=== PATIENT | female | born 1935 | race Caucasian/White ===

== ENCOUNTER 2016-08-04 01:37 | Observation (INO) | payer MEDICARE, BC ==
[2016-08-04] VITALS (7 sets, daily range): BP systolic 126–178; BP diastolic 64–93; PULSE 60–83; RESP 16–20; TEMP 97.4–98; O2SAT 96–98
[~2016-08-04] VITALS: Ht 167.6 cm; Wt 56.0 kg
[~2016-08-04 01:37] MED LIST: 1-ME1LIQ PO; BIOT5000 PO; BRIM0.155 EACH EYE; CALC100T2 PO; IRBE300T46 PO; LEVO112T2 PO; LUTE20CA PO; TRAV0.00 EACH EYE; VITA400T14 PO; VITA500T83 PO
--- NOTE | 2016-08-04 01:58 | PD ---
HPI Chief Complaint: Pain: Acute or Chronic Time Seen by Provider: 01:51 Travel History International Travel<30 days: No Contact w/Intl Traveler<30days: No Traveled to known affect area: No History of Present Illness HPI 81-year-old female with severe aortic stenosis, spinal stenosis status post surgical repair in 2012, scheduled for aortic valve replacement the first week in August, here for evaluation of left mid/upper back pain. Pain started at around 3 PM yesterday while at rest, described as an ache, constant, intermittently worse at times, no modifying factors. No dyspnea. No hemoptysis. No history of DVT or PE. She denies history of coronary artery disease. No trauma. No paresthesias or motor deficits. No fevers, chills, cough, or recent illness. PFSH Past Medical History Arthritis: Yes Autoimmune Disease: No Blood Disorders: No Cancer: Yes (thyroid) Cardiovascular Problems: Yes High Cholesterol: Yes Chemotherapy: No Diabetes: No Endocrine: Yes Gastrointestinal Disorders: Yes GERD: Yes Genitourinary: No Hypertension: Yes Musculoskeletal: Yes Neurologic: No Psychiatric: No Respiratory: No Radiation Therapy: No Thyroid Disease: Yes (cancer) Ulcer: Yes Menopausal: Yes Past Surgical History Abdominal Surgery: Yes (COLON RESECTION) Appendectomy: Yes Cardiac Surgery: No Endocrine Surgery: Yes (THYROID) Genitourinary Surgery: Yes Gynecologic Surgery: Yes Hysterectomy: Yes Thoracic Surgery: Yes (VERTIBRAE FUSION) Tonsillectomy: Yes Other Surgery: Yes (THYROIDECTOMY, BREAST BIOPSY, ) Social History Alcohol Use: Yes (occasional wine) Tobacco Use: No Substance Use: No Allergies-Medications (Allergen,Severity, Reaction): Coded Allergies: No Known Allergies (Verified , 08/04/16) Reported Meds & Prescriptions Reported Meds & Active Scripts Active Reported Calcium Lactate 100 Mg Tab Unknown Dose PO TID Lutein 20 Mg Cap 20 Mg PO DAILY Vitamin D2 (Ergocalciferol) 400 Unit Tab 1.25 Mg PO DAILY Vitamin C (Ascorbic Acid) 500 Mg Tab 500 Mg PO DAILY Brimonidine Tartrate 0.15 % Karla 1 Drop EACH EYE BID Travatan Z (Travoprost) 0.004 % Manav 1 Drop EACH EYE HS Levothyroxine 112 mcg (Levothyroxine Sodium) 112 Mcg Tab 112 Mcg PO DAILY EXCEPT SATURDA [id number] - 1 Tab PO DAILY Review of Systems Except as stated in HPI: all other systems reviewed are Neg Physical Exam Narrative GENERAL: Well-developed, well-nourished, elderly-appearing female, comfortable, no acute distress, ambulated to the restroom without difficulty and without assistance. SKIN: Warm and dry. No rash. Well-healed surgical scars over midline thoracic and lumbar spine. HEAD: Atraumatic. Normocephalic. EYES: Pupils equal and round. No scleral icterus. No injection or drainage. ENT: Mucous membranes pink and moist. NECK: Trachea midline. No JVD. CARDIOVASCULAR: Regular rate and rhythm. Harsh holosystolic murmur. RESPIRATORY: No accessory muscle use. Clear to auscultation. Breath sounds equal bilaterally. GASTROINTESTINAL: Abdomen soft, non-tender, nondistended. MUSCULOSKELETAL: No obvious deformities. No clubbing. No cyanosis. No edema. Skin exam as above. No midline vertebral step-off or tenderness. No CVA tenderness. No chest wall tenderness. NEUROLOGICAL: Awake and alert. No obvious cranial nerve deficits. Motor grossly within normal limits. Normal speech. PSYCHIATRIC: Appropriate mood and affect; insight and judgment normal. Data Data Last Documented VS Vital Signs Date Time Temp Pulse Resp B/P Pulse Ox O2 Delivery O2 Flow Rate FiO2 08/04/16 03:40 97 08/04/16 02:35 16 08/04/16 02:35 Room Air 08/04/16 01:39 97.7 68 178/93 Orders Complete Blood Count With Diff (08/04/16 01:55) Comprehensive Metabolic Panel (08/04/16 01:55) Act Partial Throm Time (Ptt) (08/04/16 01:55) Prothrombin Time / Inr (Pt) (08/04/16 01:55) Ckmb (Isoenzyme) Profile (08/04/16 01:55) Troponin I (08/04/16 01:55) Iv Access Insert/Monitor (08/04/16 01:55) Electrocardiogram (08/04/16 01:55) Ecg Monitoring (08/04/16 01:55) Oximetry (08/04/16 01:55) Oxygen Administration (08/04/16 01:55) Chest, Single Ap (08/04/16 01:55) Ct Pulmonary Angiogram (08/04/16 01:55) Sodium Chloride 0.9% Flush (Ns Flush) (08/04/16 02:00) Iohexol 350 Inj (Omnipaque 350 Inj) (08/04/16 03:06) Aspirin Chew (Aspirin Chew) (08/04/16 03:45) Admit Order (Ed Use Only) (08/04/16 03:36) Activity Bed Rest With Brp (08/04/16 03:36) Vital Signs (Adult) Q4H (08/04/16 03:36) Cardiac Rhythm .As Directed (08/04/16 03:36) ^ Notify Dr: Other .PRN (08/04/16 03:36) ^ Notify Dr. Parameters (08/04/16 03:36) Resp Oxygen Nasal Cannula (08/04/16 ) Ckmb (Isoenzyme) Profile (08/04/16 03:36) Ckmb (Isoenzyme) Profile (08/04/16 06:36) Troponin I (08/04/16 03:36) Troponin I (08/04/16 06:36) ^ Obtain (08/04/16 03:36) Sodium Chloride 0.9% Flush (Ns Flush) (08/04/16 03:45) Sodium Chloride 0.9% Flush (Ns Flush) (08/04/16 09:00) Labs Laboratory Tests Test 08/04/16 02:00 White Blood Count 4.8 TH/MM3 Red Blood Count 4.03 MIL/MM3 Hemoglobin 13.0 GM/DL Hematocrit 37.5 % Mean Corpuscular Volume 93.1 FL Mean Corpuscular Hemoglobin 32.2 PG Mean Corpuscular Hemoglobin 34.6 % Concent Red Cell Distribution Width 13.8 % Platelet Count 191 TH/MM3 Mean Platelet Volume 8.6 FL Neutrophils (%) (Auto) % Lymphocytes (%) (Auto) % Monocytes (%) (Auto) % Eosinophils (%) (Auto) % Basophils (%) (Auto) % Neutrophils # (Auto) TH/MM3 Lymphocytes # (Auto) TH/MM3 Monocytes # (Auto) TH/MM3 Eosinophils # (Auto) TH/MM3 Basophils # (Auto) TH/MM3 CBC Comment AUTO DIFF Differential Total Cells 100 Counted Neutrophils % (Manual) 61 % Lymphocytes % 31 % Monocytes % 6 % Eosinophils % 2 % Neutrophils # (Manual) 2.9 TH/MM3 Differential Comment FINAL DIFF MANUAL Platelet Estimate NORMAL Platelet Morphology Comment NORMAL Red Cell Morphology Comment NORMAL Prothrombin Time 15.4 SEC Prothromb Time International 1.4 RATIO Ratio Activated Partial 43.0 SEC Thromboplast Time Sodium Level 140 MEQ/L Potassium Level 3.3 MEQ/L Chloride Level 101 MEQ/L Carbon Dioxide Level 29.5 MEQ/L Anion Gap 10 MEQ/L Blood Urea Nitrogen 23 MG/DL Creatinine 0.88 MG/DL Estimat Glomerular Filtration 62 ML/MIN Rate Random Glucose 87 MG/DL Calcium Level 10.5 MG/DL Total Bilirubin 0.7 MG/DL Aspartate Amino Transf 17 U/L (AST/SGOT) Alanine Aminotransferase 21 U/L (ALT/SGPT) Alkaline Phosphatase 52 U/L Total Creatine Kinase 71 U/L Troponin I 0.02 NG/ML Total Protein 7.2 GM/DL Albumin 4.0 GM/DL [facility] Medical Decision Making Medical Screen Exam Complete: Yes Emergency Medical Condition: Yes Interpretation(s) EKG: Sinus, rate 58, RBBB which is old, no acute ischemic abnormality. Differential Diagnosis ACS, pneumothorax, pericarditis, PE, pneumonia, suicidal pain, spinal stenosis/ cord compression/cauda equina syndrome unlikely, pyelonephritis Narrative Course Vital signs show heart rate 68, blood pressure 178/93, pulse ox 98% on room air , oral temp of 97.7F. CBC is unremarkable. CMP is remarkable for potassium 3.3, otherwise unremarkable. Troponin is 0.02. Chest x-ray read as clear lungs. CT pulmonary angiogram: CONCLUSION: The study is negative for pulmonary embolism. Coronary calcifications noted. Patient was made aware of all findings. On reassessment the patient states that her pain has resolved. Given coronary calcifications seen on CT scan and pain described as an ache in her left posterior chest, this could be chest pain equivalent. Plan is to keep her in the chest pain center for further cardiac evaluation. She is amenable to this plan. Diagnosis Primary Impression: Chest pain Qualified Code: R07.9 - Chest pain, unspecified type Admitting Information Admitting Physician Requests: Observation Johnnie Seth MD Aug 04, 2016 01:58
[2016-08-04] MEDS ORDERED: SODIUM CHLORIDE 0.9% FLUSH 5 ML FLUSH IVF PRN ×2 (02:00→03:45)
[2016-08-04 02:33] LABS: HEMATOCRIT 37.5 % (35.0-46.0); MEAN CELL VOLUME 93.1 FL (80.0-100.0); MEAN CORPUSCULAR HEMOGLOBIN 32.2 PG (27.0-34.0); MEAN CORPUSCULAR HGB CONC 34.6 % (32.0-36.0); PLATELET COUNT 191 TH/MM3 (150-450); RED BLOOD COUNT 4.03 MIL/MM3 (4.00-5.30); RED CELL DISTRIBUTION WIDTH 13.8 % (11.6-17.2); WHITE BLOOD COUNT 4.8 TH/MM3 (4.0-11.0)
[2016-08-04 02:34] LABS: HEMO FLAGS AUTO DIFF
--- NOTE | 2016-08-04 02:43 | RADRPT ---
EXAM DATE/TIME: 08/04/2016 02:04 [facility] COMPARISON: No previous studies available for comparison. INDICATIONS : Chest pain. MEDICAL HISTORY : Hypertension. Aortic stenosis. SURGICAL HISTORY : Fusion, thoracic. ENCOUNTER: Initial ACUITY: 1 day PAIN SCORE: 4/10 LOCATION: Left chest FINDINGS: A single view of the chest demonstrates the lungs to be symmetrically aerated without evidence of mas s, infiltrate or effusion. The cardiomediastinal contours are unremarkable. Osseous structures are intact. Multiple hemoclips in the left axilla. CONCLUSION: The lungs are clear. Yannick Lopez MD on August 04, 2016 at 2:41 Board Certified Radiologist. This report was verified electronically.
[2016-08-04 02:44] LABS: ALT (GPT) 21 U/L (10-53); ANION GAP 10 MEQ/L (5-15); AST (GOT) 17 U/L (15-37); BICARBONATE 29.5 MEQ/L (21.0-32.0); BLOOD UREA NITROGEN 23 MG/DL (7-18); CHLORIDE 101 MEQ/L (98-107); GLOMERULAR FILTRATION RATE 62 ML/MIN (>89); POTASSIUM 3.3 MEQ/L (3.5-5.1); SODIUM (NA) 140 MEQ/L (136-145)
[2016-08-04 02:48] LABS: ALKALINE PHOSPHATASE 52 U/L (45-117); TOTAL BILIRUBIN ADULT 0.7 MG/DL (0.2-1.0)
[2016-08-04 02:50] LABS: CREATINE KINASE 71 U/L (26-192)
[2016-08-04 02:57] LABS: INTERNATIONAL NORMALIZED RATIO 1.4 RATIO; PROTHROMBIN TIME - PATIENT 15.4 SEC (9.8-11.6)
[2016-08-04] MEDS ORDERED: IOHEXOL 350 MG/ML 10 ML VIAL (for RAD DIAG) IV ONE (03:06)
[2016-08-04 03:08] LABS: EOSINOPHILS 2 % (0-4); NEUTROPHIL # MANUAL DIFF 2.9 TH/MM3 (1.8-7.7); POLYS (SEG NEUTROPHILS) 61 % (16-70); WBC DIFF SAMPLE 100
[2016-08-04 03:09] LABS: PLATELET ESTIMATE SMEAR NORMAL (NORMAL); PLATELET MORPHOLOGY NORMAL (NORMAL); SCAN/DIFF FINAL DIFF MANUAL
--- NOTE | 2016-08-04 03:28 | RADRPT ---
EXAM DATE/TIME: 08/04/2016 03:01 [facility] COMPARISON: CHEST SINGLE AP, August 04, 2016, 2:04. INDICATIONS : Back pain and short of breath. IV CONTRAST: 74 cc Omnipaque 350 (iohexol) IV RADIATION DOSE: 6.14 CTDIvol (mGy) MEDICAL HISTORY : Hypertension. Cardiovascular disease Gastroesophageal reflux disease.Aortic stenosis. Thyroid cancer. SURGICAL HISTORY : Appendectomy. Colon resection. ENCOUNTER: Initial ACUITY: 1 day PAIN SCALE: 4/10 LOCATION: chest TECHNIQUE: Volumetric scanning of the chest was performed using a pulmonary embolism protocol MIP images were re constructed. Using automated exposure control and adjustment of the mA and/or kV according to patien t size, radiation dose was kept as low as reasonably achievable to obtain optimal diagnostic quality images. FINDINGS: PULMONARY ARTERIES: No filling defects are seen in the pulmonary arteries through the segmental level. LUNGS: There is no consolidation or pneumothorax . No concerning pulmonary nodule is visualized. PLEURAE: There is no pleural thickening or pleural effusion. MEDIASTINUM: There is good visualization of the great vessels of the middle mediastinum. No evidence of mediastin al or hilar adenopathy/mass. Coronary artery calcifications. CONCLUSION: The study is negative for pulmonary embolism. Yannick Lopez MD on August 04, 2016 at 3:25 Board Certified Radiologist. This report was verified electronically.
[2016-08-04] MEDS ORDERED: ASPIRIN 81 MG CHEW TAB PO ONE (03:45)
[2016-08-04] MEDS ORDERED: SODIUM CHLORIDE 0.9% FLUSH 5 ML FLUSH IVF SCH (09:00)
[2016-08-04] MEDS ORDERED: [UNRECOGNIZED DRUG - CODE] PO (09:07)
[2016-08-04] MEDS ORDERED: VAGI10TA PV (09:07)
[2016-08-04] MEDS ORDERED: BRIM0.155 EACH EYE (09:07)
[2016-08-04] MEDS ORDERED: TRAV0.00 EACH EYE (09:07)
[2016-08-04] MEDS ORDERED: XARE15TA PO (09:07)
[2016-08-04] MEDS ORDERED: AMLO10TA2 PO (09:07)
[2016-08-04] MEDS ORDERED: LEVO-168 PO (09:07)
[2016-08-04] MEDS ORDERED: IRBE300T13 PO (09:07)
[2016-08-04] MEDS ORDERED: ERGO1CAP10 PO (09:07)
[2016-08-04] MEDS ORDERED: IRBESARTAN HYDROCHLOROTHIAZIDE PO SCH (09:15)
[2016-08-04] MEDS ORDERED: LOSARTAN 50 MG TAB PO SCH (10:00)
[2016-08-04] MEDS ORDERED: LEVOTHYROXINE SODIUM 112 MCG TAB PO SCH (10:00)
[2016-08-04] MEDS ORDERED: HYDROCHLOROTHIAZIDE 25 MG TAB PO SCH (10:00)
[2016-08-04] MEDS ORDERED: POTASSIUM CHLORIDE 20 MEQ CONTROLLED RELEASE TAB PO ONE (11:00)
--- NOTE | 2016-08-04 12:39 | EKG ---
Date Performed: 08/04/2016 Time Performed: 02:40:13 PTAGE: 81 years EKG: SINUS BRADYCARDIA WITH MARKED SINUS ARRHYTHMIA RIGHT BUNDLE BRANCH BLOCK ABNORMAL ECG PREVIOUS TRACING : 04/03/2016 10.56 DOCTOR: Trevon Delgado Interpretating Date/Time 08/04/2016 12:38:02
--- NOTE | 2016-08-04 12:43 | EKG ---
Date Performed: 08/04/2016 Time Performed: 05:37:51 PTAGE: 81 years EKG: SINUS BRADYCARDIA WITH SINUS ARRHYTHMIA RIGHT BUNDLE BRANCH BLOCK ABNORMAL ECG PREVIOUS TRACING : 08/04/2016 02.40 DOCTOR: Trevon Delgado Interpretating Date/Time 08/04/2016 12:42:05
--- NOTE | 2016-08-04 12:47 | EKG ---
Date Performed: 08/04/2016 Time Performed: 08:17:24 PTAGE: 81 years EKG: SINUS BRADYCARDIA WITH SINUS ARRHYTHMIA RIGHT BUNDLE BRANCH BLOCK ABNORMAL ECG PREVIOUS TRACING : 08/04/2016 05.37 DOCTOR: Trevon Delgado Interpretating Date/Time 08/04/2016 12:46:45
--- NOTE | 2016-08-04 14:22 | HHI.DCPOC ---
Discharge Care Plan Diagnosis: (1) Chest pain, atypical (2) Aortic stenosis (3) Hypertension Goals to Promote Your Health * To prevent worsening of your condition and complications * To maintain your health at the optimal level Directions to Meet Your Goals Take your medications as prescribed Follow your dietary instruction Follow activity as directed Keep your appointments as scheduled Take your immunizations and boosters as scheduled If your symptoms worsen call your PCP, if no PCP go to Urgent Care Center or Emergency Room Smoking is Dangerous to Your Health. Avoid second hand smoke Call the 24-hour hour crisis hotline for domestic abuse at Celso Gustafson Aug 04, 2016 14:22
[2016-08-04] MEDS ORDERED: RIVAROXABAN 15 MG TAB PO SCH (21:00)
--- NOTE | 2016-08-05 09:33 | MH ---
cc: TREVON BAUM DATE OF : 1935 DATE OF ADMISSION: 08/04/2016 CHIEF COMPLAINT Back pain HISTORY OF PRESENT ILLNESS This is an 81 year-old female with a history of aortic stenosis who is scheduled for aortic valve replacement August 15, in [place], presents complaining of back discomfort. She states it is the left side of her back. It occurred yesterday around 3 o'clock while she was having a pedicure. It has constantly been there but intensely increased on its own. She has found nothing to worsen or improve the symptoms. She has had no associated shortness of breath, nausea, diaphoresis, denies chest pain. Denies coughing. Denies any recent illness. The patient had an evaluation for her valve replacement last year. That included a heart catheterization on 04/03/[address] Ernst. At that time the report states large coronaries, free of significant coronary artery disease, stenosis, LV function was normal. PAST MEDICAL HISTORY 1. Aortic stenosis 2. Carotid stenosis 3. Hypertension. 4. Hypothyroidism. Denies hyperlipidemia and diabetes. FAMILY HISTORY Father had MA at age 82. SOCIAL HISTORY She is a lifetime nonsmoker. Denies illicit drugs. She has a glass of wine every evening. She is for 65 years. PAST SURGICAL HISTORY 1. Heart catheterization March without intervention. 2. Colon resection. 3. Cervical spine infusion. 4. Hysterectomy. 5. Thyroidectomy. 6. Breast biopsy that was benign. ALLERGIES: NO KNOWN DRUG ALLERGIES. MEDICATIONS: 1. Irbesartan/Hydrochlorothiazide 300/12.5 milligrams daily. 2. Xarelto daily in the evening. 3. Amlodipine 4. Levothyroxine. 5. Several sdam-see-bbaabhd supplements as well as eye drops which include Famotidine and Travatan. She also uses vaginal cream every two weeks. REVIEW OF SYSTEMS General: Denies fevers or chills. Denies recent illnesses. HEENT: Denies headache, ear ache, sore throat, difficulty swallowing. Cardiovascular: Denies chest discomfort. She describes left-sided back pain. Denies diaphoresis. Denies sensation of heart beating rapidly or irregularly. Denies syncope. RESPIRATORY: Denies shortness of breath or inspirational chest discomfort. Denies coughing, wheezing or hemoptysis. GASTROINTESTINAL: Denies nausea, vomiting, diarrhea, abdominal pain, blood in stool. MUSCULOSKELETAL: Denies joint pain or edema. Denies calf pain or edema. NEUROVASCULAR: Denies headache or dizziness. ENDOCRINE: Denies polyuria, polydipsia. HEMATOLOGIC: Denies easy bruising. SKIN: Denies rash or itching. PHYSICAL EXAMINATION: Vital signs: In the emergency room initially included blood pressure 178/93, heart 68, respiration was 16, pulse oximetry 98% room air and she was afebrile. Most recent vital signs include a blood pressure 160/70, heart rate 60, respirations 18, pulse oximetry 96% on room air and she was afebrile. General: The patient is seen in the examination room in no apparent distress. She is very pleasant. She speaks in clear and complete sentences. HEENT: Head is atraumatic and normocephalic. Neck is supple without lymphadenopathy. Trachea is midline. No JVD. No carotid bruits. Cardiovascular: Regular rate and rhythm without gallop or rub. There is a loud systolic murmur on the right sternal border radiating into the neck. This can also be heard throughout auscultating the anterior chest wall. Respiratory: Lungs are clear to auscultation bilaterally. No wheezing, rales or rhonchi. No use of accessory muscles. No reproducible chest wall discomfort. GI: Abdomen is nontender, nondistended. Bowel sounds are normal. No guarding or rebound. No obvious pulsatile mass or bruit. No CVA tenderness. Strong femoral pulses bilaterally. Musculoskeletal: The patient is moving upper and lower extremities freely. No joint tenderness or edema. No calf tenderness or edema, no Homans' sign. Strong pulses in upper and lower extremities. Neurovascular: The patient is alert and oriented. Cranial nerves II to XII grossly intact. No focal deficits and speech is clear. Skin: No rashes and turgor is normal. LABORATORY DATA CBC essentially unremarkable. Coagulation studies: unremarkable. Basic metabolic panel has a potassium decreased 3.3, BUN mildly elevated at 29, essentially unremarkable BMP. Serial cardiac enzymes normal x3. X-RAYS: Single view chest x-ray read by the radiologist. Lungs are clear. CT pulmonary angiogram obtained through the ER read by the radiologist as study negative for pulmonary embolism. EKGs have sinus bradycardia with right bundle-branch block. No significant ST segment elevation. ASSESSMENT/PLAN 1. Atypical chest pain. The patient was really denying chest pain, was complaining of back discomfort. She had serial cardiac enzymes and EKGs for ruling out purposes. She had a heart catheterization in March of last year that was performed by Dr. Ernst and stated large coronaries, free of significant coronary artery disease. There will be no further cardiac testing at this time. She will be seen by Dr. Baum and likely discharged home with instructions to follow up with her primary care physician, local commission broker as well as cardiovascular thoracic surgeon, who is planning on doing an aortic valve replacement August 15. 2. Aortic stenosis. The patient is scheduled to have aortic valve replacement August 15, and she should continue the plan with this surgeon. 3. Hypertension. Continue current medications. 4. Hypokalemia. The patient will be given potassium supplement in the Chest Pain Center. The patient is stable at time. She is agreeable this plan. Dictated by: Celso Gustafson PA-C Trevon Baum MD [facility] /10:05 AM /9:31 AM
== END 2016-08-04 15:10 | disposition home or self-care (01) ==
LOC: NEPC 01:37 → NEDA 03:41 → NEPHCDU 04:59
PROVIDERS: ADMIT Family Medicine; ATTEND Family Medicine
DX: R07.89 Other chest pain (principal); I35.0 Nonrheumatic aortic (valve) stenosis; I10 Essential (primary) hypertension; E87.6 Hypokalemia; R94.31 Abnormal electrocardiogram [ECG] [EKG]; E03.9 Hypothyroidism, unspecified; E78.00 Pure hypercholesterolemia, unspecified; K21.9 Gastro-esophageal reflux disease without esophagitis; M19.90 Unspecified osteoarthritis, unspecified site
CPT/HCPCS: 71010; 71275; 80053; 82550; 84443; 84484; 85007; 85027; 85610; 85730; 93005; 99285; G0378; Q9967